=== PATIENT | male | born 1960 | race Caucasian/White ===

== ENCOUNTER 2016-04-25 09:39 | Emergency (ER) | payer OTHER ==
[~2016-04-25] VITALS: Ht 172.7 cm; Wt 60.1 kg
[~2016-04-25 09:39] MED LIST: ASPIRIN325 MG PO; ATORVASTATIN CA80 MG PO; BACTRIM,SEPT1 TABLET PO; FENOFIBRATE160 M1 PO; LEVAQUIN500 MG PO; LEVAQUIN750 MG PO; LISINOPRIL2.5 MG PO; LISINOPRIL5 MG PO; LO-DOSE ASPIRIN81 M1 PO; METOPROLOL SUCC25 MG PO; METOPROLOL SUCC50 MG PO; NICOTINE PATCH1 EAC2 TD; PERCOCET 5/31 TABLET PO; PRAVACHOL80 MG PO; PREDNISONE20 MG PO; PROAIR HFA8.5 GM IH; SPIRIVA1 INHALATI IH; SYMBICORT60 INHALAT IH; VENTOLIN HFA18 GM IH; VITAMIN B-12250 MCG PO; ZESTRIL10 MG PO
[2016-04-25 11:03] LABS: INFLUENZA A VIRAL ANTIGEN NEGATIVE; INFLUENZA B VIRAL ANTIGEN NEGATIVE
[2016-04-25 12:25] LABS: HEMATOCRIT 42.6 % (38.0-50.0); MCH 32.6 PG (29.0-34.0); MCHC 33.1 G/DL (30.0-36.0); MCV 98.6 FL (86-99); MEAN PLAT.VOLUME 10.6 uM^3 (9.0-12.4); PLATELET COUNT 189 K/uL (156-360); RBC DIS.WIDTH-CV 13.7 % (11.8-14.6); RBC DIS.WIDTH-SD 48.3 % (39-53); RED BLOOD COUNT 4.32 M/uL (4.00-5.50); WHITE BLOOD COUNT 8.5 K/uL (4.1-10.2)
[2016-04-25 12:38] LABS: CHLORIDE 108 mEq/L (99-109); POTASSIUM 4.9 mEq/L (3.7-5.4); SODIUM 142 mEq/L (136-147)
[2016-04-25 12:40] LABS: GLUCOSE 90 mg/dL (70-99)
[2016-04-25 12:41] LABS: ANION GAP 9 MEQ/L (2-14)
[2016-04-25 12:44] LABS: GFR ESTIMATE (CALCULATED) > 59 mL/min/
[2016-04-25 12:45] LABS: UREA NITROGEN (BUN) 13 mg/dL (9-23)
[2016-04-25] MEDS ORDERED: TESSALON PERLE100 MG PO (14:09)
[2016-04-25] MEDS ORDERED: MUCUS ER600 MG PO (14:09)
[2016-04-25] MEDS ORDERED: PROAIR HFA8.5 GM IH (14:09)
[2016-04-25] MEDS ORDERED: ZOFRAN ODT4 MG PO (14:24)
[2016-04-25 14:40] VITALS: BP 136/87
== END 2016-04-25 15:11 | disposition home or self-care (01) ==
LOC: EME 09:39
DX: B34.9 Viral infection, unspecified (principal); J44.9 Chronic obstructive pulmonary disease, unspecified; R51 Headache; J45.909 Unspecified asthma, uncomplicated; I25.2 Old myocardial infarction; Z95.1 Presence of aortocoronary bypass graft; F17.200 Nicotine dependence, unspecified, uncomplicated
CPT/HCPCS: 71020; 80048; 85027; 87502; 94640; 99281; 99284

== ENCOUNTER 2016-11-23 12:03 | Inpatient (IN) | payer OTHER ==
[2016-11-23] VITALS (8 sets, daily range): BP systolic 99–119; BP diastolic 60–85
[~2016-11-23] VITALS: Ht 172.7 cm; Wt 51.2 kg
[~2016-11-23 12:03] MED LIST changes: +MUCUS ER600 MG PO; +TESSALON PERLE100 MG PO; +ZOFRAN ODT4 MG PO
[2016-11-23 12:21] LABS: BASOPHIL COUNT 0.1 K/uL (0-0.1); EOSINOPHIL (%) 5.2 % (0-5); EOSINOPHIL COUNT 0.5 K/uL (0-0.3); HEMATOCRIT 36.4 % (38.0-50.0); IMMATURE GRANULOCYTE (%) 0.3 % (0.0-0.7); INSTRUMENT ABS NEUTROPHIL CT 5.8 K/uL; LYMPHOCYTE COUNT 1.5 K/uL (1.0-2.8); MCH 32.8 PG (29.0-34.0); MCHC 33.8 G/DL (30.0-36.0); MCV 97.1 FL (86-99); MONOCYTE COUNT 0.9 K/uL (0-0.8); NEUTROPHIL COUNT 5.8 K/uL (1.8-6.4); PLATELET COUNT 180 K/uL (156-360); RBC DIS.WIDTH-CV 13.2 % (11.8-14.6); RBC DIS.WIDTH-SD 47.6 % (39-53); RED BLOOD COUNT 3.75 M/uL (4.00-5.50); WHITE BLOOD COUNT 8.7 K/uL (4.1-10.2)
[2016-11-23 12:30] LABS: PROTHROMBIN TIME 11.4 SEC (10.2-12.9)
[2016-11-23 12:33] LABS: PTT 26.4 SEC (25-37)
[2016-11-23 12:39] LABS: AMYLASE 42 IU/L (1-118); CHLORIDE 100 mEq/L (99-109); SODIUM 134 mEq/L (136-147)
[2016-11-23 12:41] LABS: GLUCOSE 89 mg/dL (70-99)
[2016-11-23 12:42] LABS: ANION GAP 8 MEQ/L (2-14)
[2016-11-23 12:44] LABS: SERUM ETHYL ALCOHOL < 10 mg/dL; TROP-I INTERPRETATION NEGATIVE; TROPONIN-I < 0.01 ng/mL (0.0-0.30)
[2016-11-23 12:45] LABS: GFR ESTIMATE (CALCULATED) > 59 mL/min/
[2016-11-23 12:46] LABS: UREA NITROGEN (BUN) 14 mg/dL (9-23)
[2016-11-23 12:48] LABS: LIPASE 18 U/L (1.0-51.0)
[2016-11-23 13:03] LABS: TROP-I INTERPRETATION NEGATIVE; TROPONIN-I < 0.01 ng/mL (0.0-0.30)
[2016-11-23 16:10] LABS: METH RESISTANT S AUREUS PCR NEGATIVE (NEGATIVE)
[2016-11-23 16:12] LABS: PROBE CHECK PASS; SPECIMEN PROCESSING CONTROL PASS
[2016-11-23 20:23] LABS: INTER. NORMALIZED RATIO 1.1; PROTHROMBIN TIME 11.7 SEC (10.2-12.9)
[2016-11-24 04:00] VITALS: BP 124/73
[2016-11-24 08:26] VITALS: BP 125/71
[2016-11-24 09:25] LABS: HEMATOCRIT 36.4 % (38.0-50.0); MCH 33.6 PG (29.0-34.0); MCHC 34.3 G/DL (30.0-36.0); MCV 97.8 FL (86-99); MEAN PLAT.VOLUME 10.3 uM^3 (9.0-12.4); PLATELET COUNT 163 K/uL (156-360); RBC DIS.WIDTH-CV 13.5 % (11.8-14.6); RBC DIS.WIDTH-SD 48.1 % (39-53); RED BLOOD COUNT 3.72 M/uL (4.00-5.50); WHITE BLOOD COUNT 10.7 K/uL (4.1-10.2)
[2016-11-24 09:46] LABS: INTER. NORMALIZED RATIO 1.1; PROTHROMBIN TIME 12.5 SEC (10.2-12.9)
[2016-11-24 09:49] LABS: PTT 69.2 SEC (25-37)
[2016-11-24 11:42] VITALS: BP 115/72
[2016-11-24 14:58] VITALS: BP 107/65
[2016-11-24 19:00] VITALS: BP 119/71
[2016-11-24 23:00] VITALS: BP 116/78
[2016-11-25] VITALS (7 sets, daily range): BP systolic 107–127; BP diastolic 54–81
[2016-11-25 05:49] LABS: HEMATOCRIT 36.2 % (38.0-50.0); MCH 32.5 PG (29.0-34.0); MCHC 33.1 G/DL (30.0-36.0); MCV 98.1 FL (86-99); MEAN PLAT.VOLUME 10.4 uM^3 (9.0-12.4); PLATELET COUNT 184 K/uL (156-360); RBC DIS.WIDTH-CV 13.4 % (11.8-14.6); RBC DIS.WIDTH-SD 48.7 % (39-53); RED BLOOD COUNT 3.69 M/uL (4.00-5.50); WHITE BLOOD COUNT 10.3 K/uL (4.1-10.2)
[2016-11-25 06:11] LABS: ANION GAP 6 MEQ/L (2-14); CHLORIDE 105 MEQ/L (99-109); GFR ESTIMATE (CALCULATED) > 59 mL/min/; GLUCOSE 85 mg/dL (70-99); POTASSIUM 4.7 MEQ/L (3.7-5.4); SAMPLE HEMOLYSIS CHECK 0; SAMPLE ICTERIC CHECK 0; SAMPLE LIPEMIA CHECK 0; SODIUM 140 MEQ/L (136-147); UREA NITROGEN (BUN) 17 mg/dL (9-23)
[2016-11-25 06:14] LABS: INTER. NORMALIZED RATIO 1.3; PROTHROMBIN TIME 14.7 SEC (10.2-12.9)
[2016-11-25 06:17] LABS: PTT 71.2 SEC (25-37)
[2016-11-25 19:37] LABS: INTER. NORMALIZED RATIO 1.8; PROTHROMBIN TIME 20.7 SEC (10.2-12.9)
[2016-11-26 03:42] VITALS: BP 112/57
[2016-11-26 06:16] LABS: PROTHROMBIN TIME 22.5 SEC (10.2-12.9)
[2016-11-26 06:24] LABS: PTT 32.6 SEC (25-37)
[2016-11-26 07:29] VITALS: BP 109/69
[2016-11-26] MEDS ORDERED: SPIRIVA RESPIMAT4 GM IH (08:58)
[2016-11-26] MEDS ORDERED: NICOTINE PATCH1 EAC2 TD (08:59)
[2016-11-26] MEDS ORDERED: FENOFIBRATE145 M1 PO (09:01)
[2016-11-26] MEDS ORDERED: COUMADIN1 MG PO (09:01)
[2016-11-26] MEDS ORDERED: LISINOPRIL5 MG PO (09:02)
== END 2016-11-26 10:56 | disposition home or self-care (01) | DRG 281 ==
LOC: EME 12:03 → CATH 12:28 → ENRESERV 13:24 → 2SOUTH 14:10 → 4WEST 14:20 → 4EAST 14:20 → ENRESERV 16:57 → 4EAST 20:03 → ENRESERV 11-25 09:47 → 3EAST 11-25 13:53
PROVIDERS: Emergency Medicine; Family Medicine; Internal Medicine Interventional Cardiology
DX: I21.3 ST elevation (STEMI) myocardial infarction of unspecified site (principal); I77.810 Thoracic aortic ectasia; R64 Cachexia; I51.3 Intracardiac thrombosis, not elsewhere classified; I65.29 Occlusion and stenosis of unspecified carotid artery; I73.9 Peripheral vascular disease, unspecified; I25.10 Atherosclerotic heart disease of native coronary artery without angina pectoris; E78.5 Hyperlipidemia, unspecified; I25.82 Chronic total occlusion of coronary artery; I34.0 Nonrheumatic mitral (valve) insufficiency; F17.210 Nicotine dependence, cigarettes, uncomplicated; J44.9 Chronic obstructive pulmonary disease, unspecified; I25.5 Ischemic cardiomyopathy; R04.0 Epistaxis; Z95.1 Presence of aortocoronary bypass graft; Z68.1 Body mass index [BMI] 19.9 or less, adult; I25.2 Old myocardial infarction; Z86.79 Personal history of other diseases of the circulatory system; Z82.49 Family history of ischemic heart disease and other diseases of the circulatory system
CPT/HCPCS: 71260; 80048; 81003; 82150; 83690; 84484; 85025; 85027; 85610; 85730; 86850; 86900; 86901; 87641; 90686; 93005; 93306; 94010; 94640; 94640 76; 94799; 99202; 99281; 99285; C1769; C1887; C1894; G0480; J0461; J1644; J2250; J2405; J3010; J7040

== ENCOUNTER 2016-12-11 11:47 | Observation (INO) | payer OTHER ==
[~2016-12-11] VITALS: Ht 172.7 cm; Wt 55.8 kg
[~2016-12-11 11:47] MED LIST changes: +COUMADIN1 MG PO; +FENOFIBRATE145 M1 PO; +SPIRIVA RESPIMAT4 GM IH
[2016-12-11 12:22] LABS: BASOPHIL COUNT 0.1 K/uL (0-0.1); EOSINOPHIL (%) 5.3 % (0-5); EOSINOPHIL COUNT 0.4 K/uL (0-0.3); HEMATOCRIT 38.2 % (38.0-50.0); IMMATURE GRANULOCYTE (%) 0.1 % (0.0-0.7); INSTRUMENT ABS NEUTROPHIL CT 5.9 K/uL; LYMPHOCYTE COUNT 1.3 K/uL (1.0-2.8); MCH 32.6 PG (29.0-34.0); MCHC 33.2 G/DL (30.0-36.0); MCV 98.2 FL (86-99); MEAN PLAT.VOLUME 9.6 uM^3 (9.0-12.4); MONOCYTE (%) 7.2 % (3-12); MONOCYTE COUNT 0.6 K/uL (0-0.8); NEUTROPHIL (%) 71.4 % (45-76); NEUTROPHIL COUNT 5.9 K/uL (1.8-6.4); PLATELET COUNT 204 K/uL (156-360); RBC DIS.WIDTH-CV 14.1 % (11.8-14.6); RBC DIS.WIDTH-SD 50.5 % (39-53); RED BLOOD COUNT 3.89 M/uL (4.00-5.50); WHITE BLOOD COUNT 8.2 K/uL (4.1-10.2)
[2016-12-11 12:30] LABS: PROTHROMBIN TIME 11.3 SEC (10.2-12.9); PTT 27.9 SEC (25-37)
[2016-12-11 12:32] LABS: CHLORIDE 103 mEq/L (99-109); POTASSIUM 4.7 mEq/L (3.7-5.4); SODIUM 134 mEq/L (136-147)
[2016-12-11 12:34] LABS: GLUCOSE 82 mg/dL (70-99)
[2016-12-11 12:35] LABS: ANION GAP 7 MEQ/L (2-14)
[2016-12-11 12:38] LABS: GFR ESTIMATE (CALCULATED) > 59 mL/min/
[2016-12-11 12:39] LABS: UREA NITROGEN (BUN) 17 mg/dL (9-23)
[2016-12-11 12:43] LABS: TROP-I INTERPRETATION NEGATIVE; TROPONIN-I < 0.01 ng/mL (0.0-0.30)
[2016-12-11] MEDS ORDERED: ASPIR 8181 M1 PO (15:47)
[2016-12-11 16:55] VITALS: BP 107/59
[2016-12-11 18:50] LABS: TROP-I INTERPRETATION NEGATIVE; TROPONIN-I < 0.01 ng/mL (0.0-0.30)
[2016-12-11 20:00] VITALS: BP 105/61
[2016-12-12 01:05] VITALS: BP 114/60
[2016-12-12 01:44] LABS: TROP-I INTERPRETATION NEGATIVE; TROPONIN-I < 0.01 ng/mL (0.0-0.30)
[2016-12-12 04:14] VITALS: BP 126/69
[2016-12-12 05:41] LABS: MCH 33.7 PG (29.0-34.0); MCHC 33.8 G/DL (30.0-36.0); MCV 99.7 FL (86-99); MEAN PLAT.VOLUME 9.7 uM^3 (9.0-12.4); PLATELET COUNT 185 K/uL (156-360); RBC DIS.WIDTH-CV 14.1 % (11.8-14.6); RBC DIS.WIDTH-SD 51.2 % (39-53); RED BLOOD COUNT 3.41 M/uL (4.00-5.50); WHITE BLOOD COUNT 7.7 K/uL (4.1-10.2)
[2016-12-12 06:04] LABS: ANION GAP 4 MEQ/L (2-14); CHLORIDE 102 MEQ/L (99-109); GFR ESTIMATE (CALCULATED) > 59 mL/min/; GLUCOSE 82 mg/dL (70-99); POTASSIUM 5.1 MEQ/L (3.7-5.4); SAMPLE HEMOLYSIS CHECK 0; SAMPLE ICTERIC CHECK 0; SAMPLE LIPEMIA CHECK 0; SODIUM 136 MEQ/L (136-147); UREA NITROGEN (BUN) 22 mg/dL (9-23)
[2016-12-12 07:13] VITALS: BP 118/62
[2016-12-12 11:15] VITALS: BP 114/61
[2016-12-12 15:49] VITALS: BP 105/70
[2016-12-12 19:30] VITALS: BP 89/50
[2016-12-13 00:45] VITALS: BP 102/64
[2016-12-13 04:49] VITALS: BP 100/74
[2016-12-13 07:29] VITALS: BP 113/61
[2016-12-13 12:20] VITALS: BP 115/64
[2016-12-13] MEDS ORDERED: PANTOPRAZOLE SO40 MG PO (12:53)
[2016-12-13] MEDS ORDERED: TRAMADOL HCL50 MG PO (12:54)
[2016-12-13] MEDS ORDERED: ENDOCET 5-3251 EACH PO (12:54)
== END 2016-12-13 13:32 | disposition home or self-care (01) ==
LOC: EME 11:47 → 5WEST 14:33 → EDOF 14:33 → ENRESERV 14:36 → EDOF 15:55 → 5WEST 16:45
PROVIDERS: Emergency Medicine; Family Medicine; Internal Medicine Cardiovascular Disease
DX: R07.89 Other chest pain (principal); R10.12 Left upper quadrant pain; I25.5 Ischemic cardiomyopathy; F17.210 Nicotine dependence, cigarettes, uncomplicated; I10 Essential (primary) hypertension; E78.5 Hyperlipidemia, unspecified; J44.9 Chronic obstructive pulmonary disease, unspecified; I25.10 Atherosclerotic heart disease of native coronary artery without angina pectoris; Z95.1 Presence of aortocoronary bypass graft; R64 Cachexia; R00.1 Bradycardia, unspecified; I95.9 Hypotension, unspecified; I25.2 Old myocardial infarction; I35.0 Nonrheumatic aortic (valve) stenosis; Z82.49 Family history of ischemic heart disease and other diseases of the circulatory system; Z91.040 Latex allergy status; Z79.82 Long term (current) use of aspirin
CPT/HCPCS: 71010; 71100; 71275; 74177; 80048; 84484; 85025; 85027; 85610; 85730; 93005; 94640; 94640 76; 99202; 99281; 99285; G0378; J2270; J3010

== ENCOUNTER 2017-04-18 04:54 | Day surgery (SDC) | payer OTHER ==
[2017-04-18] VITALS (12 sets, daily range): BP systolic 105–162; BP diastolic 53–100
[~2017-04-18] VITALS: Ht 167.6 cm; Wt 55.8 kg
[~2017-04-18 04:54] MED LIST changes: +ASPIR 8181 M1 PO; +ENDOCET 5-3251 EACH PO; +PANTOPRAZOLE SO40 MG PO; +TRAMADOL HCL50 MG PO
[2017-04-18] MEDS ORDERED: FENOFIBRATE160 M1 PO (05:21)
[2017-04-18] MEDS ORDERED: TOPROL XL50 MG PO (05:22)
[2017-04-18 05:23] LABS: INTER. NORMALIZED RATIO 1.1
[2017-04-18] MEDS ORDERED: FISH OIL 1,0001 EAC7 PO (05:23)
[2017-04-18 05:25] LABS: ALBUMIN 3.8 g/dL (3.2-4.8); CHLORIDE 104 mEq/L (99-109); SODIUM 140 mEq/L (136-147)
[2017-04-18 05:25] LABS: PTT 29.5 SEC (25-37)
[2017-04-18 05:28] LABS: GLUCOSE 91 mg/dL (70-99); TOTAL PROTEIN 6.2 g/dL (6.4-8.3)
[2017-04-18 05:30] LABS: TOTAL BILIRUBIN 0.4 mg/dL (0.0-1.0)
[2017-04-18 05:31] LABS: ALKALINE PHOSPHATASE 80 IU/L (3-129); GFR ESTIMATE (CALCULATED) > 59 mL/min/ (58.99-99999)
[2017-04-18 05:33] LABS: AST (GOT) 15 IU/L (2-34); UREA NITROGEN (BUN) 12 mg/dL (9-23)
[2017-04-18 05:34] LABS: ALT (GPT) 14 IU/L (3-49)
[2017-04-18 05:37] LABS: TROP-I INTERPRETATION NEGATIVE; TROPONIN-I < 0.01 ng/mL (0.0-0.30)
[2017-04-18 05:49] LABS: BASOPHIL (%) 0.7 % (0-1); BASOPHIL COUNT 0.1 K/uL (0-0.1); EOSINOPHIL (%) 3.6 % (0-5); EOSINOPHIL COUNT 0.3 K/uL (0-0.3); HEMATOCRIT 40.1 % (38.0-50.0); HEMOGLOBIN 13.7 G/DL (12.5-16.6); IMMATURE GRANULOCYTE (%) 0.2 % (0.0-0.7); LYMPHOCYTE (%) 17.6 % (15-42); LYMPHOCYTE COUNT 1.5 K/uL (1.0-2.8); MCH 33.5 PG (29.0-34.0); MCHC 34.2 G/DL (30.0-36.0); MONOCYTE (%) 11.7 % (3-12); NEUTROPHIL (%) 66.2 % (45-76); NEUTROPHIL COUNT 5.7 K/uL (1.8-6.4); PLATELET COUNT 209 K/uL (156-360); RBC DIS.WIDTH-CV 12.7 % (11.8-14.6); RBC DIS.WIDTH-SD 45.3 % (39-53); RED BLOOD COUNT 4.09 M/uL (4.00-5.50); WHITE BLOOD COUNT 8.7 K/uL (4.1-10.2)
[2017-04-19] VITALS: BP 120/72
[2017-04-19 01:00] VITALS: BP 120/72
[2017-04-19 04:00] VITALS: BP 107/72
[2017-04-19 06:00] VITALS: BP 108/65
[2017-04-19 08:00] VITALS: BP 119/86
[2017-04-19] MEDS ORDERED: FENOFIBRATE160 M1 PO (08:41)
[2017-04-19] MEDS ORDERED: ZESTRIL10 MG PO (08:41)
[2017-04-19] MEDS ORDERED: PROAIR HFA8.5 GM IH (08:41)
[2017-04-19] MEDS ORDERED: ATORVASTATIN CA80 MG PO (08:41)
[2017-04-19] MEDS ORDERED: SPIRIVA RESPIMAT4 GM IH (08:41)
[2017-04-19] MEDS ORDERED: ENDOCET 5-3251 EACH PO (08:41)
[2017-04-19] MEDS ORDERED: TOPROL XL50 MG PO (08:41)
[2017-04-19 12:00] VITALS: BP 114/64
== END 2017-04-19 14:30 | disposition home or self-care (01) ==
LOC: EME → EDBD 04:54 → ENRESERV 05:32 → CATH 05:55 → EME 05:55 → 2SOUTH 06:43 → 4WEST 06:43 → 2SOUTH 06:43 → ENRESERV 07:01 → CANRESERV 07:34 → ENRESERV 09:16 → 4WEST 09:18
PROVIDERS: Emergency Medicine
DX: R07.9 Chest pain, unspecified (principal); R94.31 Abnormal electrocardiogram [ECG] [EKG]; I25.10 Atherosclerotic heart disease of native coronary artery without angina pectoris; I25.82 Chronic total occlusion of coronary artery; Z95.1 Presence of aortocoronary bypass graft; Z95.5 Presence of coronary angioplasty implant and graft; Z91.14 Patient's other noncompliance with medication regimen; Z91.19 Patient's noncompliance with other medical treatment and regimen; F17.200 Nicotine dependence, unspecified, uncomplicated; J44.9 Chronic obstructive pulmonary disease, unspecified; E78.5 Hyperlipidemia, unspecified
CPT/HCPCS: 71045; 80053; 83735; 83880; 84484; 85025; 85610; 85730; 87081; 87641; 93005; 94640; 94640 76; 94799; 99202; 99281; 99285; C1769; C1887; C1894; G0378; J1644; J2250; J3010

== ENCOUNTER 2017-04-23 08:22 | Emergency (ER) | payer OTHER ==
[~2017-04-23] VITALS: Ht 172.7 cm; Wt 59.0 kg
[~2017-04-23 08:22] MED LIST changes: +FISH OIL 1,0001 EAC7 PO; +TOPROL XL50 MG PO
[2017-04-23 09:23] LABS: HEMATOCRIT 39.9 % (38.0-50.0); HEMOGLOBIN 13.5 G/DL (12.5-16.6); MCH 33.7 PG (29.0-34.0); MCHC 33.8 G/DL (30.0-36.0); MCV 99.5 FL (86-99); PLATELET COUNT 212 K/uL (156-360); RBC DIS.WIDTH-SD 47.8 % (39-53); RED BLOOD COUNT 4.01 M/uL (4.00-5.50); WHITE BLOOD COUNT 9.9 K/uL (4.1-10.2)
[2017-04-23 09:46] LABS: ALBUMIN 3.8 G/DL (3.2-4.8); CHLORIDE 104 MEQ/L (99-109); SODIUM 138 MEQ/L (136-147); TOTAL BILIRUBIN 0.2 MG/DL (0.0-1.0)
[2017-04-23 09:51] LABS: ALKALINE PHOSPHATASE 64 IU/L (3-129); ALT (GPT) 13 IU/L (3-49); AST (GOT) 16 IU/L (2-34); CREATININE 1.1 MG/DL (0.6-1.3); GFR ESTIMATE (CALCULATED) > 59 mL/min/ (58.99-99999); GLUCOSE 75 mg/dL (70-99); TOTAL PROTEIN 6.7 G/DL (6.4-8.3); UREA NITROGEN (BUN) 17 mg/dL (9-23)
[2017-04-23 10:02] LABS: LIPASE 13 U/L (1.0-51.0)
[2017-04-23 12:12] LABS: APPEARANCE CLEAR ((CLEAR)); BILIRUBIN NEGATIVE; BLOOD NEGATIVE; COLOR YELLOW ((YELLOW)); GLUCOSE (STRIP) NEGATIVE; KETONES NEGATIVE; LEUKOCYTES TRACE; NITRITE NEGATIVE; PROTEIN (STRIP) NEGATIVE; SPECIFIC GRAVITY 1.039 (1.000-1.030)
[2017-04-23 12:32] LABS: BACTERIA RARE /HPF; EPITHELIAL CELLS RARE /HPF; MUCUS NONE SEEN /LPF; RED BLOOD CELLS 0-5 /HPF (0-5); UCUL ADDED? YES
[2017-04-23 14:31] VITALS: BP 103/69
== END 2017-04-23 14:31 | disposition home or self-care (01) ==
LOC: EME 08:22
DX: I70.0 Atherosclerosis of aorta (principal); I77.4 Celiac artery compression syndrome; I70.1 Atherosclerosis of renal artery; J44.9 Chronic obstructive pulmonary disease, unspecified; I25.2 Old myocardial infarction; Z95.1 Presence of aortocoronary bypass graft; F17.200 Nicotine dependence, unspecified, uncomplicated; Z79.82 Long term (current) use of aspirin
CPT/HCPCS: 74177; 80053; 81003; 83605; 83690; 85027; 87086; 99281; 99285; J2270; J2405; J7030

== ENCOUNTER 2017-06-12 18:27 | Emergency (ER) | payer OTHER ==
[~2017-06-12] VITALS: Ht 170.2 cm; Wt 62.3 kg
[2017-06-12 19:27] LABS: BASOPHIL (%) 0.5 % (0-1); EOSINOPHIL (%) 4.2 % (0-5); EOSINOPHIL COUNT 0.3 K/uL (0-0.3); HEMATOCRIT 38.8 % (38.0-50.0); HEMOGLOBIN 13.3 G/DL (12.5-16.6); IMMATURE GRANULOCYTE (%) 0.5 % (0.0-0.7); LYMPHOCYTE COUNT 1.3 K/uL (1.0-2.8); MCH 33.4 PG (29.0-34.0); MCHC 34.3 G/DL (30.0-36.0); MCV 97.5 FL (86-99); MONOCYTE (%) 6.4 % (3-12); MONOCYTE COUNT 0.5 K/uL (0-0.8); NEUTROPHIL (%) 71.4 % (45-76); NEUTROPHIL COUNT 5.5 K/uL (1.8-6.4); PLATELET COUNT 152 K/uL (156-360); RBC DIS.WIDTH-CV 13.6 % (11.8-14.6); RBC DIS.WIDTH-SD 49.1 % (39-53); RED BLOOD COUNT 3.98 M/uL (4.00-5.50); WHITE BLOOD COUNT 7.7 K/uL (4.1-10.2)
[2017-06-12 19:34] LABS: CHLORIDE 105 mEq/L (99-109); POTASSIUM 4.9 mEq/L (3.7-5.4); SODIUM 139 mEq/L (136-147)
[2017-06-12 19:36] LABS: GLUCOSE 113 mg/dL (70-99)
[2017-06-12 19:40] LABS: CREATININE 1.2 mg/dL (0.6-1.3); GFR ESTIMATE (CALCULATED) > 59 mL/min/ (58.99-99999)
[2017-06-12 19:41] LABS: UREA NITROGEN (BUN) 23 mg/dL (9-23)
[2017-06-12 19:47] LABS: TROP-I INTERPRETATION NEGATIVE; TROPONIN-I < 0.01 ng/mL (0.0-0.30)
[2017-06-12] MEDS ORDERED: PREDNISONE10 M1 PO (21:17)
[2017-06-12 21:28] VITALS: BP 111/78
== END 2017-06-12 21:29 | disposition home or self-care (01) ==
LOC: EME 18:27
PROVIDERS: Emergency Medicine
DX: J44.1 Chronic obstructive pulmonary disease with (acute) exacerbation (principal); I49.1 Atrial premature depolarization; R94.31 Abnormal electrocardiogram [ECG] [EKG]; I25.2 Old myocardial infarction; F17.200 Nicotine dependence, unspecified, uncomplicated; Z79.82 Long term (current) use of aspirin; Z95.1 Presence of aortocoronary bypass graft; Z98.84 Bariatric surgery status; Z86.79 Personal history of other diseases of the circulatory system
CPT/HCPCS: 71046; 80048; 84484; 85025; 87502; 93005; 94640; 99281; 99285; J1100; J7644